=== PATIENT | female | born 2000 | race Two or more races ===

== ENCOUNTER 2019-03-24 23:17 | Emergency (ER) | payer OTHER ==
[2019-03-25] MEDS ORDERED: NORMAL SALINE 1000 ML 1,000 ML IV ONE (01:00)
--- NOTE | 2019-03-25 01:02 | ER Document Report ---
ED GI/ - General Chief Complaint: Flank Pain Stated Complaint: URINARY COMPLAINTS Time Seen by Provider: 03/25/19 00:52 Primary Care Provider: MATHEW GIBBONS MD [Primary Care Provider] - Follow up as needed Notes: Patient is a 18-year-old female that comes to the emergency department for chief complaint of painful urination. She states symptoms started 1 week ago, initially she was seen and placed on Bactrim, she states she started getting irritated vaginally and stopped, she was placed on Macrobid because symptoms continue, she has been taking Macrobid but symptoms have worsened over the past 2 days. She denies fever recorded but states she has been having some chills. She denies flank pain. She does report some vaginal discharge but denies vaginal bleeding. Past medical history of bipolar disorder, takes no daily medications otherwise, denies history of kidney stones. TRAVEL OUTSIDE OF THE [place] IN LAST 30 DAYS: No - Related Data Allergies/Adverse Reactions: amoxicillin Allergy (Verified 03/25/19 00:15) Home Medications: zofran 4 mg po prn. macrodantin 100 mg po q12h. bcp Past Medical History - General Information source: Patient Last Menstrual Period: 03/17 - Social History Smoking Status: Never Smoker Frequency of alcohol use: None Drug Abuse: None Lives with: Family Family History: Reviewed & Not Pertinent Patient has suicidal ideation: No Patient has homicidal ideation: No Psychiatric Medical History: Reports: Hx Bipolar Disorder Surgical Hx: Negative - Immunizations Immunizations up to date: Yes Review of Systems - Review of Systems Constitutional: No symptoms reported EENT: No symptoms reported Cardiovascular: No symptoms reported Respiratory: No symptoms reported Gastrointestinal: See HPI Genitourinary: See HPI Female Genitourinary: See HPI Musculoskeletal: No symptoms reported Skin: No symptoms reported Hematologic/Lymphatic: No symptoms reported Neurological/Psychological: No symptoms reported Physical Exam - Vital signs Vitals: Temp Pulse Resp BP Pulse Ox 98.8 F 116 H 16 121/89 H 98 03/24/19 23:23 03/24/19 23:23 03/24/19 23:23 03/24/19 23:23 03/24/19 23:23 - Notes Notes: GENERAL: Alert, interacts well. No acute distress. Smiling and well-appearing HEAD: Normocephalic, atraumatic. EYES: Pupils equal, round, and reactive to light. Extraocular movements intact. ENT: Oral mucosa moist, tongue midline. Oropharynx unremarkable. Airway patent. Nares patent, no nasal septal hematoma, TM's intact. NECK: Full range of motion. Supple. Trachea midline. LUNGS: Clear to auscultation bilaterally, no wheezes, rales, or rhonchi. No respiratory distress. HEART: Regular rate and rhythm. No murmur ABDOMEN: Soft, non-tender. Non-distended. Bowel sounds present in all 4 quadrants. GENITOURINARY: External exam normal, speculum exam showing large amount of yellowish discharge, no cervical motion tenderness, no bleeding. Exam performed with [facility] at bedside. EXTREMITIES: Moves all 4 extremities spontaneously. No edema, normal radial and dorsalis pedis pulses bilaterally. No cyanosis. BACK: no cervical, thoracic, lumbar midline tenderness. No saddle anesthesia, normal distal neurovascular exam. Moves all extremities in full range of motion. NEUROLOGICAL: Alert and oriented x3. Normal speech. Cranial nerves II through XII grossly intact. PSYCH: Normal affect, normal mood. SKIN: Warm, dry, normal turgor. No rashes or lesions noted. Course - Re-evaluation Re-evalutation: Patient's abdomen is actually quite benign with no noted tenderness or guarding. She is quite well-appearing as well. Her vital signs are unremarkable. CBC shows leukocytosis, chemistry nonspecific. test is negative. Urine does definitely appear infected, in addition to this her pelvic exam is abnormal with yellowish discharge noted although there is no overt cervical motion tenderness. 3+ white blood cells noted. Gonorrhea and Chlamydia negative. No STD. Discussed with patient. Patient will be placed on doxycycline, culture of the urine will be performed, she will be given Rocephin here. She will follow- up with primary care and return if she worsens. Patient states appreciation and agreement. Stable at time of discharge. - Vital Signs Vital signs: Temp Pulse Resp BP Pulse Ox 98.5 F 98 15 104/54 L 94 03/25/19 03:46 03/25/19 03:46 03/25/19 03:46 03/25/19 03:46 03/25/19 03:46 - Laboratory Result Diagrams: 03/25/19 01:14 03/25/19 01:14 Laboratory results interpreted by me: 03/25/19 03/25/19 03/25/19 00:15 01:14 01:14 WBC 16.4 H Lymph % (Auto) 7.5 L Absolute Neuts (auto) 13.7 H Seg Neutrophils % 84.1 H Carbon Dioxide 20 L Urine Protein 100 H Urine Glucose (UA) 150 H Urine Ketones 20 H Urine Blood MODERATE H Urine Nitrite POSITIVE H Urine Urobilinogen 4.0 H Urine Ascorbic Acid 40 H Discharge - Discharge Clinical Impression: Dysuria, Pelvic infection Condition: Stable Disposition: HOME, SELF-CARE Additional Instructions: Your examination indicates a pelvic infection. We also have a urine culture going to the lab. You have started treatment for this with Rocephin, complete treatment by taking doxycycline as prescribed to completion. Stop the Macrobid. He can take Zofran if needed for nausea. Take Tylenol or ibuprofen for pain. Follow with primary care. Return if you worsen including spiking fevers, developing abdominal pain, vomiting, or any other concerning or worsening symptoms. Prescriptions: Doxycycline Hyclate 100 mg PO BID #14 capsule Forms: Return to Work Referrals: MATHEW GIBBONS MD [Primary Care Provider] - Follow up as needed
[2019-03-25 01:19] LABS: APPEARANCE,URINE SLIGHTLY-CLOUDY; BILIRUBIN,URINE NEGATIVE (NEGATIVE); COLOR,URINE RED; GLUCOSE, URINE 150 mg/dL (NEGATIVE); KETONES,URINE 20 mg/dL (NEGATIVE); LEUKOCYTE ESTERASE,URINE NEGATIVE (NEGATIVE); NITRITE,URINE POSITIVE (NEGATIVE); PROTEIN,URINE 100 mg/dL (NEGATIVE); URINE SPECIFIC GRAVITY 1.027
[2019-03-25 01:28] LABS: ABSOLUTE BASOPHILS # (AUTO) 0.1 10^3/uL (0.0-0.2); ABSOLUTE EOSINOPHILS # (AUTO) 0.1 10^3/uL (0.0-0.6); ABSOLUTE LYMPHOCYTES (AUTO) 1.2 10^3/uL (0.5-4.7); ABSOLUTE MONOCYTES (AUTO) 1.2 10^3/uL (0.1-1.4); ABSOLUTE NEUT (AUTO) 13.7 10^3/uL (1.7-8.2); BASOPHILS % (AUTO) 0.4 % (0-2); EOSINOPHILS % (AUTO) 0.9 % (0-6); HEMATOCRIT 38.6 % (36.0-47.0); HEMOGLOBIN 13.3 g/dL (12.0-15.5); LYMPHOCYTES % (AUTO) 7.5 % (13-45); MEAN CORPUSCULAR HEMOGLOBIN 30.8 pg (27.0-33.4); MEAN CORPUSCULAR HGB CONC 34.4 g/dL (32.0-36.0); MEAN CORPUSCULAR VOLUME 90 fl (80-97); MONOCYTES % (AUTO) 7.1 % (3-13); PLATELET COUNT 269 10^3/uL (150-450); RED BLOOD COUNT 4.32 10^6/uL (3.72-5.28); RED CELL DISTRIBUTION WIDTH 13.4 % (11.5-14.0); SEGMENTED NEUTROPHILS % (AUTO) 84.1 % (42-78); TOTAL CELLS COUNTED % (AUTO) 100 %; WHITE BLOOD COUNT 16.4 10^3/uL (4.0-10.5)
[2019-03-25 01:44] LABS: T.VAGINALIS (WET MOUNT) NO TRICHOMONAS SEEN; WBCS (WET MOUNT) 3+ WBCS SEEN; YEAST (WET MOUNT) NO YEAST SEEN
[2019-03-25 01:45] LABS: BACTERIA (WET MOUNT) 3+ BACTERIA SEEN; RBCS (WET MOUNT) NO RBCS SEEN
[2019-03-25] MEDS ORDERED: CEFTRIAXONE 1 GM/D5W RTU 1 GM/50 ML RTUPB IV ONE (01:57)
[2019-03-25 02:01] LABS: ANION GAP 14 (5-19); BLOOD UREA NITROGEN 9 mg/dL (7-20); CALCIUM 9.6 mg/dL (8.4-10.2); CARBON DIOXIDE 20 mmol/L (22-30); CHLORIDE 105 mmol/L (98-107); GLUCOSE 95 mg/dL (75-110); POTASSIUM 3.9 mmol/L (3.6-5.0)
[2019-03-25 03:06] LABS: CHLAM PCR NOT DETECTED (NOT DETECT)
[2019-03-25] MEDS ORDERED: DOXYCYCLINE HYCLATE 100 MG TABLET PO ONE (03:27)
[2019-03-25 03:49] VITALS: BP 104/54
== END 2019-03-25 03:49 | disposition home or self-care (01) ==
LOC: ER 23:17
DX: N73.9 Female pelvic inflammatory disease, unspecified (principal); R30.0 Dysuria; R10.9 Unspecified abdominal pain; Z88.0 Allergy status to penicillin
CPT/HCPCS: 36415; 87210; 85025; 81025; 80048; 81001; 87491; 87591; J7030; J0696; 87086; 96361; 96365; 99283

== ENCOUNTER 2019-04-28 20:02 | Emergency (ER) | payer OTHER ==
[2019-04-28 20:07] VITALS: BP 113/76
--- NOTE | 2019-04-28 20:33 | ER Document Report ---
HPI - HPI Patient complains to provider of: RIGHT HAND SORE Time Seen by Provider: 04/28/19 20:24 Onset: Other Onset/Duration: Persistent Pain Level: Denies Context: Patient presents to the emergency department with complaints of sore to her right hand across the MCP joint. She reports that she scraped her hand a couple weeks ago on a laundry basket. She reports she has been cleaning it with hydrogen peroxide daily and putting Neosporin on it. She reports it seems to be still irritated. Denies history of diabetes. No erythema no warmth no swelling. She reports some clear discharge. Associated Symptoms: None Exacerbated by: Denies Relieved by: Denies Similar symptoms previously: No Recently seen / treated by doctor: No - REPRODUCTIVE Reproductive: DENIES: : Past Medical History - General Information source: Patient - Social History Smoking Status: Unknown if Ever Smoked Cigarette use (# per day): No Frequency of alcohol use: None Drug Abuse: None Occupation: [employer] Lives with: Family Family History: Reviewed & Not Pertinent Patient has suicidal ideation: No Patient has homicidal ideation: No Psychiatric Medical History: Reports: Hx Bipolar Disorder Surgical Hx: Negative - Immunizations Immunizations up to date: Yes Vertical Provider Document - CONSTITUTIONAL Agree With Documented VS: Yes Exam Limitations: No Limitations General Appearance: WD/WN, No Apparent Distress - INFECTION CONTROL TRAVEL OUTSIDE OF THE [place] IN LAST 30 DAYS: No - HEENT HEENT: Atraumatic, Normocephalic - NECK Neck: Supple - RESPIRATORY Respiratory: No Respiratory Distress - CARDIOVASCULAR Cardiovascular: Regular Rate - MUSCULOSKELETAL/EXTREMETIES Musculoskeletal/Extremeties: MAEW, FROM, Non-Tender - NEURO Level of Consciousness: Awake, Alert, Appropriate Motor/Sensory: No Motor Deficit - DERM Integumentary: Warm, Dry Adult Front & Back Diagram: 1 - Healing sore noticed to the dorsal area third MCP. No erythema no warmth no swelling Course - Re-evaluation Re-evalutation: 04/28/19 21:00 Patient presents with a sore to the top of the right hand. She reports happened after she scraped herself on the laundry basket. Patient has been cleaning it daily with peroxide. She was instructed to quit cleaning it with peroxide. She was instructed to keep it clean aired out when possible. Monitor the site for erythema warmth swelling discharge. Patient also has [employer] insurance. She was instructed to follow-up with her primary care provider for referral to dermatology as indicated. - Vital Signs Vital signs: Temp Pulse Resp BP Pulse Ox 98.7 F 90 20 113/76 92 04/28/19 20:06 04/28/19 20:06 04/28/19 20:06 04/28/19 20:06 04/28/19 20:06 Discharge - Discharge Clinical Impression: right hand wound Condition: Stable Disposition: HOME, SELF-CARE Additional Instructions: *You have been treated for right hand wound Keep your hand clean avoid chemicals do not use peroxide *Monitor your hand for signs of infection such as redness swelling warmth discharge increased pain *Follow up with a primary care provider in 1 week for referral to dermatology as indicated *Return to ED for signs of infection, worsening condition, changes, needs Forms: Return to Work Referrals: MATHEW GIBBONS MD [Primary Care Provider] - Follow up in 3-5 days
== END 2019-04-28 20:34 | disposition home or self-care (01) ==
LOC: ER 20:02
DX: L98.9 Disorder of the skin and subcutaneous tissue, unspecified (principal); W22.8XXA Striking against or struck by other objects, initial encounter
CPT/HCPCS: 99283

== ENCOUNTER 2020-02-03 20:29 | Emergency (ER) | payer OTHER ==
--- NOTE | 2020-02-03 20:59 | ER Document Report ---
ED Medical Screen (RME) - General Chief Complaint: Vaginal Bleeding Stated Complaint: VAGINAL BLEEDING Time Seen by Provider: 02/03/20 20:47 Primary Care Provider: MATHEW GIBBONS MD [Primary Care Provider] - Follow up as needed Notes: 19-year-old female presented to ED for complaint of heavy vaginal bleeding. She states she woke up this morning and she had a large gush of vaginal bleeding. She states she then had slow vaginal bleeding until about 6 PM and then she had another large gush with clots and then has had heavy bleeding since then. She just now was in the bathroom and had several large clots and bled through her clothes. She has been given pads and paper scrubs to wear until she is able to be discharged. She has been ordered blood urine and transvaginal ultrasound. She states she did have a menstrual period about 2 weeks ago and she does not know if she is or not. She said this is not usual for her to have a second. This close and does heavy bleeding. She does have a history of bipolar anxiety and depression. She states she does not smoke drink or use any drugs. I have greeted and performed a rapid initial assessment of this patient. A comprehensive ED assessment and evaluation of the patient, analysis of test results and completion of medical decision making process will be conducted by an additional ED providers. TRAVEL OUTSIDE OF THE [place] IN LAST 30 DAYS: No - Related Data Allergies/Adverse Reactions: amoxicillin Allergy (Verified 03/25/19 00:15) Home Medications: Vistiril Past Medical History - Social History Frequency of alcohol use: None Drug Abuse: None Psychiatric Medical History: Reports: Hx Bipolar Disorder - Immunizations Immunizations up to date: Yes Physical Exam - Vital signs Vitals: Temp Pulse Resp BP Pulse Ox 98.5 F 103 H 18 114/87 H 97 02/03/20 20:49 02/03/20 20:49 02/03/20 20:49 02/03/20 20:49 02/03/20 20:49 Course - Vital Signs Vital signs: Temp Pulse Resp BP Pulse Ox 98.5 F 103 H 18 114/87 H 97 02/03/20 20:49 02/03/20 20:49 02/03/20 20:49 02/03/20 20:49 02/03/20 20:49 Doctor's Discharge - Discharge Referrals: MATHEW GIBBONS MD [Primary Care Provider] - Follow up as needed
[2020-02-03 21:49] LABS: ABSOLUTE BASOPHILS # (AUTO) 0.1 10^3/uL (0.0-0.2); ABSOLUTE EOSINOPHILS # (AUTO) 0.2 10^3/uL (0.0-0.6); ABSOLUTE LYMPHOCYTES (AUTO) 2.6 10^3/uL (0.5-4.7); ABSOLUTE MONOCYTES (AUTO) 0.6 10^3/uL (0.1-1.4); ABSOLUTE NEUT (AUTO) 5.8 10^3/uL (1.7-8.2); EOSINOPHILS % (AUTO) 1.8 % (0-6); HEMATOCRIT 39.3 % (36.0-47.0); LYMPHOCYTES % (AUTO) 28.1 % (13-45); MEAN CORPUSCULAR HEMOGLOBIN 31.9 pg (27.0-33.4); MEAN CORPUSCULAR HGB CONC 35.6 g/dL (32.0-36.0); MEAN CORPUSCULAR VOLUME 90 fl (80-97); MONOCYTES % (AUTO) 6.4 % (3-13); PLATELET COUNT 349 10^3/uL (150-450); RED BLOOD COUNT 4.38 10^6/uL (3.72-5.28); RED CELL DISTRIBUTION WIDTH 13.4 % (11.5-14.0); SEGMENTED NEUTROPHILS % (AUTO) 62.7 % (42-78); TOTAL CELLS COUNTED % (AUTO) 100 %; WHITE BLOOD COUNT 9.2 10^3/uL (4.0-10.5)
[2020-02-03 21:57] LABS: APPEARANCE,URINE SLIGHTLY-CLOUDY; BILIRUBIN,URINE NEGATIVE (NEGATIVE); COLOR,URINE YELLOW; GLUCOSE, URINE NEGATIVE (NEGATIVE); KETONES,URINE TRACE mg/dL (NEGATIVE); LEUKOCYTE ESTERASE,URINE SMALL (NEGATIVE); NITRITE,URINE NEGATIVE (NEGATIVE); PROTEIN,URINE NEGATIVE (NEGATIVE); URINE SPECIFIC GRAVITY 1.024; UROBILINOGEN,URINE NEGATIVE mg/dL (<2.0)
[2020-02-03 22:17] LABS: ALBUMIN 5.4 g/dL (3.5-5.0); ALKALINE PHOSPHATASE 49 U/L (38-126); ANION GAP 14 (5-19); ASPARTATE AMINO TRANSFERASE 26 U/L (14-36); BILIRUBIN,DIRECT 0.3 mg/dL (0.0-0.4); BILIRUBIN,TOTAL 0.7 mg/dL (0.2-1.3); BLOOD UREA NITROGEN 9 mg/dL (7-20); CALCIUM 10.1 mg/dL (8.4-10.2); CARBON DIOXIDE 23 mmol/L (22-30); CHLORIDE 103 mmol/L (98-107); GLUCOSE 90 mg/dL (75-110); POTASSIUM 3.5 mmol/L (3.6-5.0); TOTAL PROTEIN 8.5 g/dL (6.3-8.2)
--- NOTE | 2020-02-03 23:22 | RADIOLOGY REPORT (SQ) ---
EXAM DESCRIPTION: US PELVIS TRANSVAGINAL COMPLETED DATE/TME: 02/03/2020 20:56 CLINICAL HISTORY: 19 years, Female, possible with heavy vaginal bleeding COMPARISON: None. TECHNIQUE: Emergent pelvic ultrasound LIMITATIONS: None. FINDINGS: The uterus measures 7.0 x 3.2 x 4.1 cm. The myometrium is homogenous. The endometrium measures 5 mm in thickness. Right ovary measures 2.4 x 1.6 x 2.2 cm, left ovary 2.4 x 1.3 x 2.0 cm. Normal flow to each ovary. No adnexal cyst or mass. No free fluid IMPRESSION: Unremarkable exam copyright 2010 [facility])- All Rights Reserved
[2020-02-04 01:01] VITALS: BP 121/80
--- NOTE | 2020-02-04 01:04 | ER Document Report ---
ED GI/ - General Chief Complaint: Vaginal Bleeding Stated Complaint: VAGINAL BLEEDING Time Seen by Provider: 02/03/20 20:47 Primary Care Provider: JOHN STOLL MD [EMERITUS] - Follow up as needed BEA DUKES MD [EMERITUS] - Follow up as needed BRANDON NERI MD [ACTIVE STAFF] - Follow up as needed Mode of Arrival: Ambulatory Information source: Patient Notes: Otherwise healthy 19-year-old female presenting to the emergency department chief complaint of vaginal bleeding. Patient reports she thinks she may be . Patient's last menstrual cycle was 2 weeks ago. She states her menstrual cycle is usually normal. She states it is not normal for her to have bleeding outside of her menstrual cycle. She is reporting low abdominal cramping. She is taking control pills. TRAVEL OUTSIDE OF THE [place] IN LAST 30 DAYS: No - Related Data Allergies/Adverse Reactions: amoxicillin Allergy (Verified 03/25/19 00:15) Home Medications: Vistiril Past Medical History - General Information source: Patient - Social History Smoking Status: Never Smoker Frequency of alcohol use: None Drug Abuse: None Family History: Reviewed & Not Pertinent Patient has homicidal ideation: No Psychiatric Medical History: Reports: Hx Bipolar Disorder Surgical Hx: Negative - Immunizations Immunizations up to date: Yes Review of Systems - Review of Systems Female Genitourinary: Vaginal bleeding -: Yes All other systems reviewed and negative Physical Exam - Vital signs Vitals: Temp Pulse Resp BP Pulse Ox 98.5 F 103 H 18 114/87 H 97 02/03/20 20:49 02/03/20 20:49 02/03/20 20:49 02/03/20 20:49 02/03/20 20:49 - Notes Notes: PHYSICAL EXAMINATION: GENERAL: Well-appearing, well-nourished and in no acute distress. HEAD: Atraumatic, normocephalic. EYES: Pupils equal round and reactive to light, extraocular movements intact, conjunctiva are normal. ENT: Nares patent, oropharynx clear without exudates. Moist mucous membranes. NECK: Normal range of motion, supple without lymphadenopathy LUNGS: Breath sounds clear to auscultation bilaterally and equal. No wheezes rales or rhonchi. HEART: Regular rate and rhythm without murmurs ABDOMEN: Soft, nontender, nondistended abdomen. No guarding, no rebound. No masses appreciated. Female : No obvious vaginal bleeding noted, no cervical motion or adnexal tenderness. Musculoskeletal: Normal range of motion, no pitting or edema. No cyanosis. NEUROLOGICAL: Cranial nerves grossly intact. Normal speech, normal gait. Normal sensory, motor exams PSYCH: Normal mood, normal affect. SKIN: Warm, Dry, normal turgor, no rashes or lesions noted. Course - Re-evaluation Re-evalutation: Microbiology 02/03/20 21:05 Urine Culture - Preliminary Clean Catch Midstream Gram Positive Cocci Clusters Laboratory 02/03/20 02/03/20 02/03/20 21:05 21:20 21:20 WBC 9.2 RBC 4.38 Hgb 14.0 Hct 39.3 MCV 90 MCH 31.9 MCHC 35.6 RDW 13.4 Plt Count 349 Lymph % (Auto) 28.1 [facility] % (Auto) 6.4 Eos % (Auto) 1.8 Baso % (Auto) 1.0 Absolute Neuts (auto) 5.8 Absolute Lymphs (auto) 2.6 Absolute Monos (auto) 0.6 Absolute Eos (auto) 0.2 Absolute Basos (auto) 0.1 Seg Neutrophils % 62.7 Sodium 139.8 Potassium 3.5 L Chloride 103 Carbon Dioxide 23 Anion Gap 14 BUN 9 Creatinine 0.70 Est GFR ( Amer) > 60 Est GFR (MDRD) Non-Af > 60 Glucose 90 Calcium 10.1 Total Bilirubin 0.7 Direct Bilirubin 0.3 Neonat Total Bilirubin Not Reportable Neonat Direct Bilirubin Not Reportable Neonat Indirect Bili Not Reportable AST 26 ALT 16 Alkaline Phosphatase 49 Total Protein 8.5 H Albumin 5.4 H Beta HCG, Quant < 2.39 Total Beta HCG NEGATIVE Urine Color YELLOW Urine Appearance SLIGHTLY-CLOUDY Urine pH 6.0 Ur Specific Mallory 1.024 Urine Protein NEGATIVE Urine Glucose (UA) NEGATIVE Urine Ketones TRACE H Urine Blood MODERATE H Urine Nitrite NEGATIVE Urine Bilirubin NEGATIVE Urine Urobilinogen NEGATIVE Ur Leukocyte Esterase SMALL H Urine WBC (Auto) 35 Urine RBC (Auto) 15 Squamous Epi Cells Auto 1 Urine Mucus (Auto) RARE Urine Ascorbic Acid NEGATIVE Blood Type Rhogam Indicated 02/03/20 21:20 WBC RBC Hgb Hct MCV MCH MCHC RDW Plt Count Lymph % (Auto) [facility] % (Auto) Eos % (Auto) Baso % (Auto) Absolute Neuts (auto) Absolute Lymphs (auto) Absolute Monos (auto) Absolute Eos (auto) Absolute Basos (auto) Seg Neutrophils % Sodium Potassium Chloride Carbon Dioxide Anion Gap BUN Creatinine Est GFR ( Amer) Est GFR (MDRD) Non-Af Glucose Calcium Total Bilirubin Direct Bilirubin Neonat Total Bilirubin Neonat Direct Bilirubin Neonat Indirect Bili AST ALT Alkaline Phosphatase Total Protein Albumin Beta HCG, Quant Total Beta HCG Urine Color Urine Appearance Urine pH Ur Specific Mallory Urine Protein Urine Glucose (UA) Urine Ketones Urine Blood Urine Nitrite Urine Bilirubin Urine Urobilinogen Ur Leukocyte Esterase Urine WBC (Auto) Urine RBC (Auto) Squamous Epi Cells Auto Urine Mucus (Auto) Urine Ascorbic Acid Blood Type B POSITIVE Rhogam Indicated RHOGAM NOT INDICATED Transvaginal US 02/03/20 20:56 IMPRESSION: Unremarkable exam copyright 2011 [employer]- All Rights Reserved - Vital Signs Vital signs: Temp Pulse Resp BP Pulse Ox 98.5 F 94 18 121/80 100 02/04/20 01:00 02/04/20 01:00 02/04/20 01:00 02/04/20 01:00 02/04/20 01:00 - Laboratory Result Diagrams: 02/03/20 21:20 02/03/20 21:20 Laboratory results interpreted by me: 02/03/20 02/03/20 21:05 21:20 Potassium 3.5 L Total Protein 8.5 H Albumin 5.4 H Urine Ketones TRACE H Urine Blood MODERATE H Ur Leukocyte Esterase SMALL H Discharge - Discharge Clinical Impression: Vaginal bleeding Condition: Stable Disposition: HOME, SELF-CARE Additional Instructions: Vaginal Bleeding You are having an episode of abnormal bleeding. Causes of abnormal vaginal bleeding can include miscarriage or tubal , tumors such as cancer or benign fibroids, medication effects, or hormone imbalance. Testing can eliminate unsuspected , tumors, or infection as a cause. "Dysfunctional uterine bleeding" is due to hormone imbalance, and is especially common at times when the normal cycle is disturbed -- whether by recent , use of control pills or hormones, or impending menopause. If the bleeding is innocent, most commonly a short course of hormones is given to restore the uterus to normal. Sometimes, the normal menstrual cycle corrects itself naturally. Sometimes, brief hormone therapy, or even a D&C is required. Your physician will advise you. Treatment for anemia may be required if bleeding is severe. You should rest and avoid intercourse until the bleeding is controlled. Call the doctor or return for re-examination if you feel faint, have increasing pain, or have a major increase in the amount of bleeding. As discussed please follow-up with a rabble furnace tender. If you develop worsening of your bleeding that is bleeding through more than 2 pads per hour for 4 hours consecutively please return the emergency department. Please also return if you feel faint, weak or you pass out. Referrals: BEA DUKES MD [EMERITUS] - Follow up as needed JOHN STOLL MD [EMERITUS] - Follow up as needed BRANDON NERI MD [ACTIVE STAFF] - Follow up as needed
== END 2020-02-04 01:09 | disposition home or self-care (01) ==
LOC: ER 20:29
DX: N93.8 Other specified abnormal uterine and vaginal bleeding (principal); R10.30 Lower abdominal pain, unspecified; Z88.0 Allergy status to penicillin
CPT/HCPCS: 36415; 76830; 80053; 81001; 84702; 85025; 86900; 86901; 87086; 87088; 87186; 93976; 99284